=== PATIENT | male | born 1970 | race Caucasian/White ===

== ENCOUNTER → 2017-02-16 | Outpatient (REF) | payer OTHER ==
[~2017-02-16] MED LIST: /ACETCOD3T OR; COLA100C2 OR; NABU500T OR; NEUR300C OR; PERC5TAB8 OR; PRIL40CA OR
[2017-02-16 19:13] LABS: ANION GAP 8 MEQ/L (8-16); BLOOD UREA NITROGEN 15 MG/DL (7-18); CALCIUM LEVEL 9.1 MG/DL (8.5-10.1); CARBON DIOXIDE LEVEL 29 MEQ/L (21-32); CHLORIDE LEVEL 105 MEQ/L (98-107); CREATININE FOR GFR 1.04 MG/DL (0.70-1.30); GLOMERULAR FILTRATION RATE > 60.0 (>60); GLUCOSE, FASTING 81 MG/DL (70-105); POTASSIUM SERUM 4.1 MEQ/L (3.5-5.1); SODIUM LEVEL 142 MEQ/L (136-145)
== END ==
LOC: M LABDRAW1 14:32
PROVIDERS: ATTEND Orthopaedic Surgery
DX: Z98.1 Arthrodesis status (principal)

== ENCOUNTER → 2017-09-06 | Outpatient (CLI) | payer OTHER ==
[2017-09-06 20:00] LABS: PLATELET COUNT, AUTOMATED 184 10^3/uL (150-450)
[2017-09-06 20:10] LABS: PROTHROMBIN TIME 13.3 SECONDS (12.4-14.5)
[2017-09-06 20:11] LABS: PARTIAL THROMBOPLASTIN TIME 28.1 SECONDS (26.8-37.9)
== END ==
LOC: M WUC 16:43
DX: M47.892 Other spondylosis, cervical region (principal)
CPT/HCPCS: 85049

== ENCOUNTER → 2018-01-24 | Outpatient (CLI) | payer OTHER ==
[~2018-01-24] MED LIST changes: -/ACETCOD3T OR; -COLA100C2 OR; -NABU500T OR; -NEUR300C OR; -PERC5TAB8 OR; -PRIL40CA OR; +PROHANCE 279.3MG/ML 15ML VIAL (A9576) As Ordered
== END ==
LOC: M RAD 18:09
DX: M51.37 Other intervertebral disc degeneration, lumbosacral region (principal); M50.221 Other cervical disc displacement at C4-C5 level; M50.21 Other cervical disc displacement, high cervical region; M47.892 Other spondylosis, cervical region
CPT/HCPCS: A9576

== ENCOUNTER → 2018-07-06 | Outpatient (REF) ==
[~2018-07-06] MED LIST changes: +/ACETCOD3T OR; +COLA100C2 OR; +NABU500T OR; +NEUR300C OR; +PERC5TAB8 OR; +PRIL40CA OR; -PROHANCE 279.3MG/ML 15ML VIAL (A9576) As Ordered
--- NOTE | 2018-07-06 14:16 | REP ---
Clinical: Pain and disability. Comparison: 03/28/2011. Technique: AP, lateral, coned-down views of the lumbosacral spine. Findings: The patient is status post posterior fixation at L5-S1. Chronic but stable anterolisthesis at the L5-S1 level appears unchanged. Remainder examination is relatively normal for age. Minimal endplate sclerosis and disc space narrowing noted at L1-2. No acute fracture / compression injury. Impression: Chronic stable anterolisthesis at L5-S1 with evidence for prior fixation. Mild spondylosis at L1-2 Electronically Signed by Elan Matos MD 07/06/2018 02:07 P
== END ==
LOC: M SMT 13:43
PROVIDERS: ATTEND Internal Medicine
DX: Z00.00 Encounter for general adult medical examination without abnormal findings (principal)